=== PATIENT | male | born 1980 ===

== ENCOUNTER → 2018-06-30 | Outpatient (REF) ==
--- NOTE | 2018-07-01 02:57 | REP ---
Clinical: Pain and disability. Technique: AP, lateral, coned-down views of the lumbosacral spine. Findings: Alignment and lordosis maintained. No acute fracture / compression injury or subluxation. Mild endplate sclerosis and very minimal disc space narrowing cannot be excluded. No further degenerative changes are appreciated. Impression: Minimal age-related degenerative changes suggested. If the patient remains symptomatic consider MRI for further investigation. Electronically Signed by Ebenezer Berumen MD 07/01/2018 02:48 A
== END ==
LOC: M SMT 13:11
PROVIDERS: ATTEND Internal Medicine
DX: Z02.71 Encounter for disability determination (principal)